=== PATIENT | female | born 1960 | race Hispanic/Latino ===

== ENCOUNTER 2025-07-25 06:37 | Day surgery (SDC) | payer MEDICARE, MEDICAID ==
[2025-07-25] VITALS (11 sets, daily range): BP systolic 141–168; BP diastolic 64–76; PULSE 56–67; RESP 14–18; TEMP 97.1–97.7
[~2025-07-25] VITALS: Ht 157.5 cm; Wt 112.9 kg
[~2025-07-25 06:37] MED LIST: AMLO-257 PO; ASPI-1005 PO; CALC-1198 PO; CARV25TA PO; DONE-51 PO; FLUT15.845 NS; HYDR-3421 PO; HYDR25TA PO; LEVO75CA6 PO; LOSA100T59 PO; OMEP40CA21 PO; ROSU10TA98 PO; SERT-438 PO; TIRZ7.5P SQ
[2025-07-25] MEDS: 0.9%NACL 1000ML 1,000 ML IV ONE (07:43)
== END 2025-07-25 09:45 | disposition home or self-care (01) ==
LOC: DAH 06:37
PROVIDERS: ATTEND Internal Medicine Gastroenterology
DX: K31.A29 Gastric intestinal metaplasia with dysplasia, unspecified (principal); D13.1 Benign neoplasm of stomach; K31.89 Other diseases of stomach and duodenum; K29.50 Unspecified chronic gastritis without bleeding; K29.40 Chronic atrophic gastritis without bleeding; K25.9 Gastric ulcer, unspecified as acute or chronic, without hemorrhage or perforation; I10 Essential (primary) hypertension; E78.00 Pure hypercholesterolemia, unspecified; F41.9 Anxiety disorder, unspecified; E03.9 Hypothyroidism, unspecified; E11.9 Type 2 diabetes mellitus without complications; M19.90 Unspecified osteoarthritis, unspecified site; Z98.49 Cataract extraction status, unspecified eye; Z96.659 Presence of unspecified artificial knee joint; Z79.82 Long term (current) use of aspirin; Z79.899 Other long term (current) drug therapy
CPT/HCPCS: 43251; 82948 ×2; 43239; J7030 ×2; J2704 ×2; A4620; A4215 ×2; A4223; A4657; A7002; A4222; A4221; A4663; A4606; J3490